=== PATIENT | male | born 1995 | race American Indian/Alaskan Native ===

== ENCOUNTER 2017-02-27 20:24 | Emergency (ER) | payer SELFPAY ==
[2017-02-27 20:39] VITALS: BP 160/97
[2017-02-27] MEDS ORDERED: Lidocaine 2% Viscous Solution 15 ML Cup ONE (21:30)
[2017-02-27] MEDS ORDERED: Lidocaine 2% Viscous Solution 15 ML Cup PO ONE (21:30)
--- NOTE | 2017-02-27 21:36 | EDM.PDOC ---
ED HPI GENERAL MEDICAL PROBLEM - General Chief Complaint: ENT Problem Stated Complaint: TOOTH PAIN, [id number] Time Seen by Provider: 02/27/17 21:22 Source of Information: Reports: Patient History Limitations: Reports: No Limitations - History of Present Illness INITIAL COMMENTS - FREE TEXT/NARRATIVE: pain right upper first molar, pain starting tonight, only tried anebesol No recent dentist, no fever gum swollen. Right Oral/Mouth Pain Score (Numeric/FACES): 10 - Related Data Allergies Allergy/AdvReac Type Severity Reaction Status Date / Time No Known Allergies Allergy Verified 09/18/16 03:54 Home Meds: Home Meds . [No Known Home Meds] 09/18/16 [History] Past Medical History - Past Health History Medical/Surgical History: Denies Medical/Surgical History Respiratory History: Reports: Asthma - Past Surgical History HEENT Surgical History: Reports: Tonsillectomy Social & Family History - Family History Family Medical History: Noncontributory - Tobacco Use Smoking Status *Q: Former Smoker Used Tobacco, but Quit: Yes Month Tobacco Last Used: 0 - Caffeine Use Caffeine Use: Reports: Coffee, Energy Drinks, Soda, Tea - Alcohol Use Days Per Week of Alcohol Use: 0 - Recreational Drug Use Recreational Drug Use: No ED ROS ENT - Review of Systems Review Of Systems: ROS reveals no pertinent complaints other than HPI. ED EXAM, ENT - Physical Exam Exam: See Below Exam Limited By: No Limitations General Appearance: Alert, Mild Distress Ears: Normal External Exam, Normal TMs Nose: Normal Inspection Mouth/Throat: Dental Pain (right upper first molar, obvious decay mild swelling of gum tissue and to right upper cheek), Dental Tenderness Head: Atraumatic, Normocephalic Neck: Normal Inspection Respiratory/Chest: No Respiratory Distress Cardiovascular: Normal Peripheral Pulses, Regular Rate, Rhythm Neurological: Alert, Oriented, Normal Cognition Psychiatric: Normal Affect, Normal Mood Course - Vital Signs Last Recorded V/S: Last Vital Signs Temp 98.7 F 02/27/17 20:28 Pulse 105 H 02/27/17 20:28 Resp 18 02/27/17 20:28 BP 160/97 H 02/27/17 20:28 Pulse Ox 98 02/27/17 20:28 Departure - Departure Time of Disposition: 21:22 Disposition: Home, Self-Care 01 Condition: Good Clinical Impression: Dental caries, Dental caries extending into dentin - Discharge Information Forms: ED Department Discharge Additional Instructions: amoxicillin 500mg one three times daily for one week #21 alternate tylenol and ibuprofen for pain every 4 hours room temperature liquids and food chew on opposite side viscous lidocaine applied to tooth area every two hours as needed
== END 2017-02-27 21:34 | disposition home or self-care (01) ==
LOC: DL.ED 20:24
DX: K02.62 Dental caries on smooth surface penetrating into dentin (principal); Z98.890 Other specified postprocedural states; Z87.891 Personal history of nicotine dependence
CPT/HCPCS: 99282; A9270-GY

== ENCOUNTER 2020-12-02 23:11 | Emergency (ER) | payer SELFPAY ==
[2020-12-02 23:19] VITALS: BP 160/105; PULSE 112
[2020-12-02] MEDS ORDERED: Diphtheria,Pertussis(Acell),Tetanus Vaccine 0.5 ML Syringe IM ONE (23:31)
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
== END 2020-12-02 23:41 | disposition home or self-care (01) ==
LOC: DL.ED 23:11
DX: S01.01XA Laceration without foreign body of scalp, initial encounter (principal); Z23 Encounter for immunization; I10 Essential (primary) hypertension; J45.909 Unspecified asthma, uncomplicated; Z72.0 Tobacco use; W22.8XXA Striking against or struck by other objects, initial encounter
CPT/HCPCS: 12002; 90471; 90715; 99283; 99284-25